=== PATIENT | female | born 1965 ===

== ENCOUNTER 2024-11-02 09:44 | Day surgery (SDC) | payer OTHER ==
[2024-10-31 09:57] VITALS: BP 115/72
[~2024-11-02] VITALS: Ht 162.6 cm; Wt 69.4 kg
[2024-11-02] MEDS ORDERED: POVIDONE-IODINE 118 ML BOTT TOP ONE ×2 (12:01→13:00)
[2024-11-02] MEDS ORDERED: KETOROLAC TROMETHAMINE 30 MG VIAL IV STA (13:10)
[2024-11-02] MEDS ORDERED: MORPHINE SULFATE 4 MG/ML VIAL IV ONE (14:15)
[2024-11-02] MEDS ORDERED: KETOROLAC TROMETHAMINE 30 MG VIAL ONE (14:43)
== END 2024-11-02 16:35 | disposition home or self-care (01) ==
LOC: CIR.AMB 09:44
PROVIDERS: ATTEND Obstetrics & Gynecology
DX: D25.0 Submucous leiomyoma of uterus (principal); N84.0 Polyp of corpus uteri; N95.0 Postmenopausal bleeding